=== PATIENT | female | born 1940 | race Caucasian/White ===

== ENCOUNTER 2020-09-12 09:37 | Outpatient (REF) | payer MEDICARE, OTHER, SELFPAY ==
[2020-09-12 12:21] LABS: Alanine Aminotransferase 15 U/L (0-31); Albumin Level 4.7 g/dL (3.5-5.0); Alkaline Phosphatase 42 U/L (39-117); Anion Gap 14 (12-20); Aspartate Amino Transferase 17 U/L (5-31); Bilirubin Total 0.9 mg/dL (0.0-1.0); Blood Urea Nitrogen 23 mg/dL (9-16); Calcium 9.4 mg/dL (8.4-10.2); Carbon Dioxide 27 mmol/L (22-29); Chloride 106 mmol/L (96-108); Cholesterol 180 mg/dL; Estimated Glomerular Filt Rate > 60; Glucose Fasting 118 mg/dL (60-99); HDL Cholesterol 51 mg/dL; LDL Cholesterol Calculated 106 mg/dl; Sodium 143 mmol/L (135-145); Total Protein 7.4 g/dL (6.5-8.0); Triglycerides 118 mg/dL
[2020-09-12 12:26] LABS: TSH reflex Free T4 0.42 uIU/mL (0.32-4.0)
[2020-09-12 12:38] LABS: Hematocrit 43.6 % (37-47); Hemoglobin 14.4 g/dl (12.0-16.0); Mean Corpuscular Hemoglobin 31.4 pg (27.0-33.0); Mean Platelet Volume 10.5 fL (9.4-12.3); Platelet Count 228 X10*3/uL (160-400); Red Blood Count 4.59 X10*6/uL (4.20-5.50); Red Cell Distribution Width 12.5 % (11.0-16.0); White Blood Count 6.9 X10*3/uL (4.8-10.8)
== END 2020-09-12 09:38 | disposition home or self-care (01) ==
LOC: HO.HMGCLDS 09:37
PROVIDERS: PCP Internal Medicine; Visit Provider Internal Medicine
DX: E78.5 Hyperlipidemia, unspecified (principal); K21.9 Gastro-esophageal reflux disease without esophagitis
CPT/HCPCS: 36415; 80053; 80061; 84443; 85027

== ENCOUNTER 2021-03-27 09:41 | Outpatient (REF) | payer MEDICARE, OTHER, SELFPAY ==
--- NOTE | ~2021-03-27 | XR_ITS ---
EXAMINATION: XR RIGHT KNEE, RIGHT ANKLE CLINICAL INFORMATION: Knee and ankle pain. COMPARISON: None. TECHNIQUE: 2 views right knee, 3 views right ankle. FINDINGS: Knee: Mild tricompartmental degenerative changes seen with narrowing of the medial compartment and some mild tibial plateau and femoral condyle osteophyte formation. Chondrocalcinosis is present with calcification in the lateral meniscus. Posterior osteophytes are seen in the patella. No significant joint effusion is seen. Ankle: Some mild degenerative changes are present in the ankle with some sclerotic change and osteophytes arising from the tip of the lateral condyle. The ankle mortise appears intact. No fractures are seen. Large plantar calcaneal spur is present. Small enthesophyte noted at the Achilles tendon insertion site. XR/XR knee RT 2V IMPRESSION: 1. Mild tricompartmental degenerative changes in the right knee with chondrocalcinosis. 2. Mild degenerative changes ankle with large plantar calcaneal spur.
--- NOTE | ~2021-03-27 | XR_ITS ---
EXAMINATION: XR RIGHT KNEE, RIGHT ANKLE CLINICAL INFORMATION: Knee and ankle pain. COMPARISON: None. TECHNIQUE: 2 views right knee, 3 views right ankle. FINDINGS: Knee: Mild tricompartmental degenerative changes seen with narrowing of the medial compartment and some mild tibial plateau and femoral condyle osteophyte formation. Chondrocalcinosis is present with calcification in the lateral meniscus. Posterior osteophytes are seen in the patella. No significant joint effusion is seen. Ankle: Some mild degenerative changes are present in the ankle with some sclerotic change and osteophytes arising from the tip of the lateral condyle. The ankle mortise appears intact. No fractures are seen. Large plantar calcaneal spur is present. Small enthesophyte noted at the Achilles tendon insertion site. XR/XR ankle RT min 3V IMPRESSION: 1. Mild tricompartmental degenerative changes in the right knee with chondrocalcinosis. 2. Mild degenerative changes ankle with large plantar calcaneal spur.
[2021-03-27 11:20] LABS: Appearance Urine TURBID; Color Urine YELLOW; Glucose Urine UA NEG (NEG); Leukocyte Esterase Urine 1+ (NEG); Nitrite Urine NEG (NEG); PH 5.5 (5.0-8.0); Specific Gravity - Urine >= 1.030 (1.005-1.025); Urine Blood 2+ (NEG); Urine Ketones 5 MG/DL (NEG); Urine Protein NEG (NEG-TRACE)
[2021-03-27 11:36] LABS: Amorphous Sediment Urine 4+ /LPF; RBC Urine 0-2 /HPF (0); WBC Urine 0-2 /HPF (0-4)
[2021-03-27 11:39] LABS: Hematocrit 40.8 % (37-47); Hemoglobin 13.6 g/dl (12.0-16.0); Mean Corpuscular HGB Conc 33.3 g/dl (31.0-35.0); Mean Corpuscular Hemoglobin 31.1 pg (27.0-33.0); Mean Corpuscular Volume 93.2 fL (80-98); Platelet Count 227 X10*3/uL (160-400); Red Blood Count 4.38 X10*6/uL (4.20-5.50); Red Cell Distribution Width 12.9 % (11.0-16.0); White Blood Count 6.1 X10*3/uL (4.8-10.8)
[2021-03-27 11:48] LABS: Alanine Aminotransferase 14 U/L (0-31); Albumin Level 4.5 g/dL (3.5-5.0); Alkaline Phosphatase 42 U/L (39-117); Anion Gap 13 (12-20); Aspartate Amino Transferase 15 U/L (5-31); Bilirubin Total 0.6 mg/dL (0.0-1.0); Blood Urea Nitrogen 21 mg/dL (9-16); Calcium 9.5 mg/dL (8.4-10.2); Carbon Dioxide 23 mmol/L (22-29); Chloride 110 mmol/L (96-108); Cholesterol 163 mg/dL; Estimated Glomerular Filt Rate > 60; Glucose Fasting 118 mg/dL (60-99); HDL Cholesterol 53 mg/dL; LDL Cholesterol Calculated 94 mg/dl; Potassium 3.9 mmol/L (3.3-5.1); Sodium 142 mmol/L (135-145); Total Protein 7.1 g/dL (6.5-8.0); Triglycerides 81 mg/dL
== END 2021-03-27 09:42 | disposition home or self-care (01) ==
LOC: HO.HMGCX 09:41
PROVIDERS: PCP Internal Medicine; Visit Provider Internal Medicine
DX: M25.561 Pain in right knee (principal); M25.562 Pain in left knee; K21.9 Gastro-esophageal reflux disease without esophagitis; E78.5 Hyperlipidemia, unspecified; R35.0 Frequency of micturition
CPT/HCPCS: 36415; 73560; 73610; 80053; 80061; 81001; 85027

== ENCOUNTER 2021-09-21 14:21 | Outpatient (REF) | payer MEDICARE, OTHER, SELFPAY ==
[2021-09-22 18:02] LABS: Lyme Blot 6.89 index
[2021-09-23 15:13] LABS: Lyme Abs Screen POSITIVE
[2021-09-23 15:36] LABS: 18 KD (IgG) Band NON-REACTIVE; 23 KD (IgG) Band NON-REACTIVE; 23 KD (IgM) Band NON-REACTIVE; 28 KD (IgG) Band NON-REACTIVE; 30 KD (IgG) Band NON-REACTIVE; 39 KD (IgM) Band NON-REACTIVE; 41 KD (IgM) Band NON-REACTIVE; 45 KD (IgG) Band NON-REACTIVE; 58 KD (IgG) Band REACTIVE; 66 KD (IgG) Band NON-REACTIVE; 93 KD (IgG) Band NON-REACTIVE; Lyme IgG Blot Interp NEGATIVE (NEGATIVE); Lyme IgM Blot Interp NEGATIVE (NEGATIVE)
== END 2021-09-21 14:22 | disposition home or self-care (01) ==
LOC: HO.HMGCLDS 14:21
PROVIDERS: Visit Provider Internal Medicine
DX: M25.561 Pain in right knee (principal); M25.562 Pain in left knee
CPT/HCPCS: 36415; 86617; 86618

== ENCOUNTER 2022-05-24 09:34 | Outpatient (REF) | payer MEDICARE, OTHER, SELFPAY ==
[2022-05-24 11:07] LABS: MANUAL DIFF FLAG NO
[2022-05-24 11:26] LABS: Basophils Percent Auto 0.1 % (0-2); Eosinophils Percent Auto 0.3 % (0-4); Hematocrit 41.8 % (37.0-47.0); Hemoglobin 13.8 g/dl (12.0-16.0); Imm Gran Abs Auto 0.02 X10*3/uL (0.00-0.03); Imm Gran Pct Auto 0.3 % (0.0-0.4); Lymphocytes Absolute Auto 1.3 X10*3/uL (1.2-4.9); Lymphocytes Percent Auto 19.1 % (20-40); Mean Corpuscular Hemoglobin 30.9 pg (27.0-33.0); Mean Corpuscular Volume 93.5 fL (80.0-98.0); Mean Platelet Volume 10.8 fL (9.4-12.3); Monocytes Absolute Auto 0.4 X10*3/uL (0.1-1.2); Monocytes Percent Auto 5.8 % (2-11); NRBC Pct Auto 0.3 /100WBC (0.0-0.2); Neutrophils Absolute Auto 5.1 x10*3/uL (2.0-8.3); Neutrophils Percent Auto 74.4 % (45-73); Platelet Count 215 X10*3/uL (160-400); Red Blood Count 4.47 X10*6/uL (4.20-5.50); Red Cell Distribution Width 12.7 % (11.0-16.0); White Blood Count 6.9 X10*3/uL (4.8-10.8)
[2022-05-24 11:32] LABS: Estimated Average Glucose 131 mg/dL; Hemoglobin A1c % 6.2 %
[2022-05-24 11:39] LABS: Alanine Aminotransferase 11 U/L (0-31); Albumin Level 4.5 g/dL (3.5-5.0); Alkaline Phosphatase 42 U/L (39-117); Anion Gap 15 (12-20); Aspartate Amino Transferase 15 U/L (5-31); Bilirubin Total 0.7 mg/dL (0.0-1.0); Blood Urea Nitrogen 23 mg/dL (9-16); Calcium 9.9 mg/dL (8.4-10.2); Carbon Dioxide 25 mmol/L (22-29); Chloride 108 mmol/L (96-108); Cholesterol 180 mg/dL; Estimated Glomerular Filt Rate > 60; Glucose Fasting 114 mg/dL (60-99); HDL Cholesterol 47 mg/dL; LDL Cholesterol Calculated 114 mg/dl; Potassium 3.9 mmol/L (3.3-5.1); Sodium 144 mmol/L (135-145); Total Protein 7.1 g/dL (6.5-8.0); Triglycerides 97 mg/dL
== END 2022-05-24 09:35 | disposition home or self-care (01) ==
LOC: HO.HMGCLDS 09:34
PROVIDERS: PCP Internal Medicine; Visit Provider Internal Medicine
DX: E78.5 Hyperlipidemia, unspecified (principal); K21.9 Gastro-esophageal reflux disease without esophagitis
CPT/HCPCS: 36415; 80053; 80061; 83036; 85025

== ENCOUNTER 2023-05-23 09:23 | Outpatient (AMB) | payer MEDICARE, OTHER, SELFPAY ==
--- NOTE | 2023-05-23 09:28 | A.OFFPC_ITS ---
Vital Signs 05/23/23 09:29 Height 5 ft 4 in Weight 183 lb BMI 31.4 BP 124/74 Blood Pressure Location Lt brachial Position Sitting Pulse 92 Pulse Source Pulse Oximeter Pulse Oximetry (%) 97 Oxygen Delivery Method Room Air Intake Visit Reasons: 1yr follow up, hyperlipidemia Intake Note: Pt is here today for a follow up visit. Allergies celecoxib [Celebrex] Allergy (Unknown, Unverified 05/23/23 09:33) Unknown Medication List - Last Reconciled 05/23/23 by Gisell Mi MD aspirin 81 mg PO DAILY atorvastatin 10 mg PO DAILY famotidine (Pepcid) 20 mg PO DAILY meclizine 25 mg PO .every 8 hours PRN ondansetron HCl 4 mg PO Q8H Tobacco use date assessed: 05/23/23 Fall risk assessment: No Falls in past year Last assessed Fall Risk: 05/23/23 Dental Screening Dental Screen Date: 05/23/23 Did you have a dental visit in the last 12 months?: No Did you have a dental problem in the last 6 months where you did not have access to dental care?: No Was dental information given to patient?: Patient declined HPI 1yr follow up, hyperlipidemia HPI Details Pt presents for f/u hyperlipid and chronic GERD, stable on meds. PFSH Medical History Cataract Eczema GERD (gastroesophageal reflux disease) Hyperlipidemia Knee pain, bilateral Tongue lesion Urinary frequency Surgical History No pertinent past surgical history Family History (Updated 05/23/23 @ 09:35 by Gayla Mejía [facility]) Father No problems noted. Mother No problems noted. Social History Housing: House Alcohol intake: never Patient Tobacco Use Status: Never used Tobacco e-Cigarette/Vaping Use: Never Used Current occupational status: retired Cognitive needs: No Hearing needs: No Vision needs: Yes Questionnaire PHQ-9 Over the last 2 weeks, how often have you been bothered by any of the following problems? 1. Little interest or pleasure in doing things: not at all 2. Feeling down, depressed, or hopeless: not at all 3. Trouble falling or staying asleep, or sleeping too much: not at all 4. Feeling tired or having little energy: not at all 5. Poor appetite or overeating: not at all 6. Feeling bad about yourself - or that you are a failure or have let yourself or your family down: not at all 7. Trouble concentrating on things, such as reading the newspaper or watching television: not at all 8. Moving or speaking so slowly that other people could have noticed. Or the opposite - being so fidgety or restless that you have been moving around a lot more than usual: not at all 9. Thoughts that you would be better off or of hurting yourself in some way: not at all Total score: 0 Depression Screening Interpretation: Negative Depression Screening Done: Yes Source: Developed by Drs. Julio Fabian, Laura Pierre, Ankit Childress and colleagues, with an educational jordon from [employer]. Thrive Questionnaire Date Thrive assessed: 05/23/23 I am a: Patient What is your living situation today?: I have a steady place to live Within the past 12 months, did the food you bought not last and you didn't have the money to get more?: Never true Within the past 12 months, did you worry whether your food would run out before you got money to buy more?: Never true Do you have trouble paying for medicines?: No Do you have trouble getting transportation to medical appointments?: No Do you have trouble paying your heating and electricity bill?: No Do you have trouble taking care of your child, family member or friend?: No Do you have trouble with day-to-day activities such as bathing, preparing meals, shopping, managing finances, etc.?: No Are you currently unemployed and looking for a job?: No Are you interested in more education?: No Please select the resources that you would like help with: None AUDIT C Alcohol Use Questionnaire (AUDIT-C) 1. How often do you have a drink containing alcohol?: Never 3. How often do you have six or more drinks on one occasion?: Never Total Score: 0 ZULLY-7 AMB Questionnaire ZULLY-7 Date ZULLY - 7 assessed: 05/23/23 Feeling nervous, anxious, or on edge: 0 = Not at all Not being able to stop or control worryin = Not at all Worrying too much about different things: 0 = Not at all Trouble relaxin = Not at all Being so restless that it is hard to sit still: 0 = Not at all Becoming easily annoyed or irritable: 0 = Not at all Feeling afraid as if something awful might happen: 0 = Not at all Total ZULLY-7 score (0-4 normal; 5-9 mild; 10-14 moderate; 15-21 severe): 0 Source: Developed by Drs. Julio Fabian, Laura Pierre, Ankit Childress and colleagues, with an educational jordon from [employer]. Review of Systems Const All systems reviewed & are unremarkable except as noted in HPI and below Reports no additional complaints Eyes Reports no additional complaints ENT Reports no additional complaints Card Reports no additional complaints Resp Reports no additional complaints GI Reports no additional complaints Reports no additional complaints Musc Reports no additional complaints Physical exam (Primary Care) Vital Signs: Last Vital Signs Pulse 92 05/23/23 09:29 BP 124/74 05/23/23 09:29 Pulse Ox 97 05/23/23 09:29 Oxygen Delivery Method Room Air 05/23/23 09:29 BMI result Body Mass Index 31.4 Tobacco/Smoking Status: Tobacco use Status Tobacco use date assessed 05/23/23 05/23/23 09:37 Patient Tobacco Use Status Never used Tobacco 05/23/23 09:37 e-Cigarette/Vaping Use Never Used 05/23/23 09:29 PHQ-9: PHQ-9 Score PHQ-9: Total score 0 05/23/23 09:37 Depression Screening Interpretation: Negative Thrive Assessment: Date of Thrive Assessment Date Thrive assessed 05/23/23 05/23/23 09:37 Const General: no acute distress HENMT Head: Yes normal to inspection Ears: hearing grossly normal bilaterally General nose exam: Normal external nose present Throat: Yes posterior oropharynx normal Eyes General: appearance normal, both eyes and all related structures Neck Neck: Yes no lymphadenopathy and Yes supple Resp Effort & Inspection: normal respiratory effort Auscultation: clear to auscultation bilaterally Cardio Rhythm: regular rhythm Heart sounds: S1 normal heart sound present and S2 normal heart sound present GI Inspection: Yes normal to inspection Palpation (GI): Soft to palpation Percussion: Yes normal to percussion Auscultation: normal bowel sounds Assessment and Plan Assessment & Plan (1) Hyperlipidemia: Code(s): E78.5 - Hyperlipidemia, unspecified Plan: Continue statin check lipid profile (2) GERD (gastroesophageal reflux disease): Comment: Diet-controlled Code(s): K21.9 - Gastro-esophageal reflux disease without esophagitis (3) Overweight: Code(s): E66.3 - Overweight Plan: Decrease caloric intake and increase physical activity discussed with the patient Orders: Orders Complete Blood Count Auto Diff Today E66.3 - Overweight, E78.5 - Hyperlipidemia, unspecified, K21.9 - Gastro-esophageal reflux disease without esophagitis Comprehensive [place]. Panel Fast Today E66.3 - Overweight, E78.5 - Hyperlipidemia, unspecified, K21.9 - Gastro-esophageal reflux disease without esophagitis Lipid Panel Today E66.3 - Overweight, E78.5 - Hyperlipidemia, unspecified, K21.9 - Gastro-esophageal reflux disease without esophagitis TSH reflex Free T4 Today E66.3 - Overweight, E78.5 - Hyperlipidemia, unspecified, K21.9 - Gastro-esophageal reflux disease without esophagitis Medications: Refilled atorvastatin 10 mg PO DAILY 90 tabs 3RF Coding Level of Care Code Est Pt Level 3 (85030) Diagnoses Hyperlipidemia E78.5 GERD (gastroesophageal reflux disease) K21.9 Overweight E66.3
[2023-05-23 09:29] VITALS: BP 124/74; PULSE 92; O2SAT 97; BMI 31.4
== END 2023-05-23 10:10 | disposition home or self-care (01) ==
PROVIDERS: Visit Provider Internal Medicine
DX: E78.5 Hyperlipidemia, unspecified (principal); K21.9 Gastro-esophageal reflux disease without esophagitis; E66.3 Overweight
CPT/HCPCS: 99213

== ENCOUNTER 2023-05-23 10:10 | Outpatient (REF) | payer MEDICARE, OTHER, SELFPAY ==
[2023-05-23 13:19] LABS: MANUAL DIFF FLAG NO
[2023-05-23 13:27] LABS: Basophils Percent Auto 0.3 % (0-2); Eosinophils Percent Auto 0.1 % (0-4); Hematocrit 44.5 % (37.0-47.0); Hemoglobin 14.8 g/dl (12.0-16.0); Imm Gran Abs Auto 0.02 X10*3/uL (0.00-0.03); Imm Gran Pct Auto 0.3 % (0.0-0.4); Lymphocytes Absolute Auto 1.4 X10*3/uL (1.2-4.9); Lymphocytes Percent Auto 19.1 % (20-40); Mean Corpuscular HGB Conc 33.3 g/dl (31.0-35.0); Mean Corpuscular Volume 93.1 fL (80.0-98.0); Monocytes Absolute Auto 0.5 X10*3/uL (0.1-1.2); Monocytes Percent Auto 6.9 % (2-11); Neutrophils Absolute Auto 5.5 x10*3/uL (2.0-8.3); Neutrophils Percent Auto 73.3 % (45-73); Platelet Count 231 X10*3/uL (160-400); Red Blood Count 4.78 X10*6/uL (4.20-5.50); Red Cell Distribution Width 12.6 % (11.0-16.0); White Blood Count 7.6 X10*3/uL (4.8-10.8)
[2023-05-23 13:53] LABS: Alanine Aminotransferase 10 U/L (0-31); Albumin Level 4.4 g/dL (3.5-5.0); Alkaline Phosphatase 48 U/L (39-117); Anion Gap 13 (12-20); Aspartate Amino Transferase 14 U/L (5-31); Bilirubin Total 0.6 mg/dL (0.0-1.0); Blood Urea Nitrogen 19 mg/dL (9-16); Calcium 9.8 mg/dL (8.4-10.2); Carbon Dioxide 26 mmol/L (22-29); Chloride 108 mmol/L (96-108); Cholesterol 194 mg/dL (<200); Estimated Glomerular Filt Rate > 60; Glucose Fasting 125 mg/dL (60-99); HDL Cholesterol 48 mg/dL (>40); LDL Cholesterol Calculated 120 mg/dL (<100); Sodium 143 mmol/L (135-145); Total Protein 7.3 g/dL (6.5-8.0); Triglycerides 132 mg/dL (<150)
[2023-05-23 14:00] LABS: TSH reflex Free T4 0.48 uIU/mL (0.32-4.0)
== END 2023-05-23 10:11 | disposition home or self-care (01) ==
LOC: HO.HMGCLDS 10:10
PROVIDERS: PCP Internal Medicine; Visit Provider Internal Medicine
DX: K21.9 Gastro-esophageal reflux disease without esophagitis (principal); E66.3 Overweight; E78.5 Hyperlipidemia, unspecified
CPT/HCPCS: 36415; 80053; 80061; 84443; 85025